=== PATIENT | female | born 1995 | race Hispanic/Latino ===

== ENCOUNTER 2018-12-20 10:32 | Outpatient (CLI) | payer OTHER ==
--- NOTE | 2018-12-20 11:42 | ULT ---
OBSTETRIC SONOGRAM: Date: 12/20/18 HISTORY: No care. Third trimester gestation. Evaluate size and dates. FINDINGS: Single intrauterine gestation in breech presentation. Cervical is closed and 3.6 cm. Grade II placent a is anterior. Amniotic fluid is within normal limits. Three vessel cord shows a normal insertion. Sp ine and kidneys are intact as visualized. Four chamber heart shows motion at 135 beats/minute. No fabián ss intracranial abnormalities. Measurements are as follows: BPD: 29 weeks/1 day HC: 29 weeks/1 day AC: 29 weeks/4 days FL: 27 weeks/3 days Estimated date of delivery based on today's sonogram is 03/08/2019. IMPRESSION: Single, viable intrauterine gestation, with estimated gestational age based on today's sonogram of 28 weeks/6 days. No significant abnormalities are demonstrated. POS: CET
== END 2018-12-20 10:33 | disposition home or self-care (01) ==
LOC: BICULT 10:32
PROVIDERS: ATTEND Family Medicine
DX: Z34.83 Encounter for supervision of other normal pregnancy, third trimester (principal); Z3A.28 28 weeks gestation of pregnancy
CPT/HCPCS: 76805

== ENCOUNTER 2018-12-27 22:40 | Day surgery (SDC) | payer OTHER ==
[2018-12-28 00:26] VITALS: BP 127/60; TEMP 98.4; BMI 24.7
--- NOTE | 2018-12-28 04:44 | SS ---
DATE OF ADMISSION: 12/27/2018 DATE OF DISCHARGE: 12/28/2018 REGULAR PHYSICIAN: Leroy Nuno MD. EVALUATING PHYSICIAN: Favian Mcrae MD. CHIEF COMPLAINT: Decreased movement. HISTORY OF PRESENT ILLNESS: Ms. Kadeem Lockett is a 23-year-old , G2, P1-0-0-1 with an estimated date of confinement of 02/27/2019, who presents complaining of decreased movement since earlier this afternoon. She denies ruptured membranes, vaginal bleeding, or contractions. Her care has been with Dr. Nuno without complications. PAST OBSTETRICAL HISTORY: One vaginal delivery at term. PAST MEDICAL HISTORY: None. PAST SURGICAL HISTORY: None. CURRENT MEDICATIONS: vitamins. ALLERGIES: NO KNOWN ALLERGIES. SOCIAL HISTORY: Denies tobacco, alcohol, or drug use. FAMILY HISTORY: Unremarkable. REVIEW OF SYSTEMS: Denies nausea, vomiting, fever, chills, ruptured membranes, or vaginal bleeding. PHYSICAL EXAMINATION: VITAL SIGNS: Vital signs are stable and she is afebrile. GENERAL: She is pleasant. She is in no acute distress. ABDOMEN: Soft, nontender, and gravid. PELVIC: Deferred. heart rate tracing is reassuring with spontaneous accelerations. No decelerations were seen. The patient does comment that she has noted movement while in triage. No uterine contractions are noted. ASSESSMENT: 1. 31 and 2/7th week intrauterine . 2. Reassuring testing tonight in triage. PLAN: The patient will be dismissed to home. The nature of movement and kick counts were discussed with her in detail and she was sent home in good condition to follow up with Dr. Nuno. Job ID: [id number]
== END 2018-12-28 00:10 | disposition home or self-care (01) ==
LOC: L&D/OP 22:40
PROVIDERS: ATTEND Family Medicine
DX: O36.8130 Decreased fetal movements, third trimester, not applicable or unspecified (principal); Z3A.31 31 weeks gestation of pregnancy; Z79.899 Other long term (current) drug therapy
CPT/HCPCS: 99282

== ENCOUNTER 2019-02-20 19:15 | Inpatient (IN) | payer OTHER ==
[~2019-02-20 19:15] MED LIST: Lidocaine 2% MPF 10 ML AMP (For Epidural Use) ONE
[2019-02-20] MEDS ORDERED: Misoprostol 200 MCG TAB PR PRN (23:36)
[2019-02-20] MEDS ORDERED: NS w/ Oxytocin 10 units 500 ML IV SCH (23:36)
[2019-02-20] MEDS ORDERED: hydrALAZINE 20 MG/ML VIAL SLOW IVP PRN (23:36)
[2019-02-20] MEDS ORDERED: Diphenoxylate HCl/Atropine Tablet PO PRN (23:36)
[2019-02-20] MEDS ORDERED: Butorphanol Tartrate 1 MG/ML VIAL SLOW IVP PRN (23:36)
[2019-02-20] MEDS ORDERED: Promethazine HCl 25 MG/ML VIAL IM PRN (23:36)
[2019-02-20] MEDS ORDERED: Methylergonovine 0.2 MG/ML VIAL IM PRN (23:36)
[2019-02-20] MEDS ORDERED: NS / Oxytocin 40 units/1000ml 1,000 ML IV PRN (23:36)
[2019-02-20] MEDS ORDERED: Ibuprofen 800 MG TAB PO PRN (23:36)
[2019-02-20] MEDS ORDERED: Lidocaine 1% (PF) 30 ML VIAL SC PRN (23:36)
[2019-02-20] MEDS ORDERED: Ondansetron PF 4 MG/2 ML Vial IVP PRN (23:36)
[2019-02-20] MEDS ORDERED: HYDROcodone/Acetaminophen 5/325 mg Tablet PO PRN (23:36)
[2019-02-20 23:44] VITALS: BMI 33.2
[2019-02-21 00:59] LABS: Hemoglobin 11.1 g/dL (12.0-16.0); Mean Corpuscular HGB CONC 33.5 g/dL (32.0-36.0); Mean Corpuscular Hemoglobin 27.1 pg (27.0-31.0); Mean Corpuscular Volume 80.8 fL (78.0-98.0); Mean Platelet Volume 8.4 fL (7.4-10.4); Platelet Count 190 thou/uL (130-400); RBC Distribution Width 13.7 % (11.5-14.5); Red Blood Cell (RBC) Count 4.08 mill/uL (4.20-5.40); White Blood Cell (WBC) Count 9.9 thou/uL (4.8-10.8)
[2019-02-21] MEDS: Misoprostol 100 MCG TAB PO SCH ×3 (01:05→20:47)
[2019-02-21] MEDS: Lactated Ringer's 1,000 ML IV SCH ×4 (01:10→17:24)
[2019-02-21 01:39] LABS: Syphilis Antibody Nonreactive (Nonreactive); Syphilis Antibody Index 0.02 S/CO (<1.00 Non-Reactive)
[2019-02-21 01:40] LABS: HBSAg Index 0.27 S/CO (0-0.99); Hep B Surf Ag Non-Reactive S/CO (NonReactive)
[2019-02-21] MEDS ORDERED: NIFEdipine 10 MG CAP PO SCH (10:00)
[2019-02-21] MEDS: NS w/ Oxytocin 10 units 500 ML IV SCH (10:18)
[2019-02-21] MEDS ORDERED: Fentanyl 4 mcg/Bup 0.1% Cadd 100 ML ONE (16:25)
[2019-02-21] MEDS ORDERED: Lidocaine 1% PF 5 ML VIAL ONE (16:35)
[2019-02-21] MEDS ORDERED: Lidocaine 1.5%/Epinephrine 1:200,000 5 ML AMPUL IJ ONE (16:36)
[2019-02-21] MEDS ORDERED: Ondansetron PF 4 MG/2 ML Vial IVP PRN (16:53)
[2019-02-21] MEDS ORDERED: Promethazine HCl 25 MG/ML VIAL IM PRN (16:53)
[2019-02-21] MEDS ORDERED: diphenhydrAMINE 50 MG/ML VIAL IVP PRN (16:53)
[2019-02-21] MEDS ORDERED: Naloxone HCl 0.4 mg/ml Vial IVP PRN ×2 (16:53)
[2019-02-21] MEDS ORDERED: ePHEDrine/0.9% NaCl/PF SYRINGE 50 mg/10 ml SLOW IVP PRN (16:53)
[2019-02-21] MEDS ORDERED: Acetaminophen 325 MG TAB PO PRN (16:53)
[2019-02-21] MEDS ORDERED: Lactated Ringer's 500 ML IV PRN (16:53)
[2019-02-21] MEDS ORDERED: Communication Order-Pharmacy FS SCH (17:00)
[2019-02-21] MEDS ORDERED: Fentanyl 4 mcg/Bupivacaine 0.1% Cassette 100 ML EPIDURAL SCH (17:00)
[2019-02-21] MEDS ORDERED: Lidocaine 2% 10 ML INJ ONE (23:44)
[2019-02-21] MEDS ORDERED: Ketorolac Tromethamine 30 MG/ML VIAL ONE (23:44)
[2019-02-21] MEDS ORDERED: ePHEDrine/0.9% NaCl/PF SYRINGE 50 mg/10 ml ONE (23:44)
[2019-02-21] MEDS ORDERED: Ondansetron PF 4 MG/2 ML Vial ONE (23:44)
[2019-02-21] MEDS ORDERED: diphenhydrAMINE 50 MG/ML VIAL ONE (23:44)
[2019-02-21] MEDS ORDERED: Dexamethasone 4 mg/ml Vial ONE (23:44)
[2019-02-21] MEDS ORDERED: Oxytocin 10 UNITS/ML VIAL ONE (23:44)
[2019-02-21] MEDS ORDERED: CEFAZOLIN 2 GM in Premix Bag 1 BAG IVPB SCH (23:59)
[2019-02-21] MEDS ORDERED: Azithromycin 500 MG in Sodium Chloride 0.9% 250 ML 250 ML IVPB SCH (23:59)
[2019-02-21] MEDS ORDERED: Bicitra 30 ML UDCUP PO SCH (23:59)
[2019-02-22] MEDS: Carboprost 250 MCG/ML AMP IM PRN ×2 (00:13→00:57)
[2019-02-22] MEDS ORDERED: Methylergonovine 0.2 MG/ML VIAL ONE (00:25)
[2019-02-22] MEDS ORDERED: Carboprost 250 MCG/ML AMP ONE ×2 (00:25→00:59)
[2019-02-22] MEDS ORDERED: MORPHINE 5 MG/10 ML PF VIAL ONE (00:36)
[2019-02-22] MEDS ORDERED: Meperidine HCl/PF 25 MG/ML VIAL SLOW IVP PRN (00:43)
[2019-02-22] MEDS ORDERED: Promethazine HCl 25 MG/ML VIAL IM PRN (00:43)
[2019-02-22] MEDS ORDERED: Ondansetron PF 4 MG/2 ML Vial IVP PRN ×2 (00:43→05:54)
[2019-02-22] MEDS ORDERED: Ondansetron HCl/PF 4 MG/2 ML Vial IVP PRN (00:43)
[2019-02-22] MEDS ORDERED: diphenhydrAMINE 50 MG/ML VIAL IVP PRN (00:43)
[2019-02-22] MEDS ORDERED: Naloxone HCl 0.4 mg/ml Vial IVP PRN ×2 (00:43)
[2019-02-22] MEDS ORDERED: HYDROmorphone 2 MG/ML VIAL SLOW IVP PRN (00:43)
[2019-02-22] MEDS ORDERED: L&D-Morphine 4 MG/ML VIAL SLOW IVP PRN (00:43)
[2019-02-22] MEDS ORDERED: Naloxone HCl 0.4 mg/ml Vial IV PRN (00:43)
[2019-02-22] MEDS ORDERED: Promethazine HCl 25 MG SUPP PR PRN (00:43)
[2019-02-22] MEDS ORDERED: Ketorolac Tromethamine 30 MG/ML VIAL IVP PRN (00:43)
[2019-02-22] MEDS ORDERED: Communication Order-Pharmacy FS SCH (00:45)
[2019-02-22] MEDS ORDERED: Misoprostol 200 MCG TAB ONE (00:58)
[2019-02-22] MEDS ORDERED: Bupivacaine/Epinephrine 0.5% 10 ML VIAL ONE (01:01)
[2019-02-22] MEDS ORDERED: Tranexamic Acid 1,000 MG/10 ML VIAL ONE (01:15)
[2019-02-22] MEDS ORDERED: metroNIDAZOLE 500 MG in Premix Bag 1 BAG IVPB SCH (02:30)
--- NOTE | 2019-02-22 03:18 | OP ---
DATE OF PROCEDURE: 02/22/2019 PREOPERATIVE DIAGNOSES: 1. Term . 2. Arrest of dilation. POSTOPERATIVE DIAGNOSES: 1. Term . 2. Arrest of dilation. 3. Persistent occiput posterior presentation. 4. Atonic hemorrhage. PROCEDURE PERFORMED: Primary low cervical transverse section. CLEATER: Soco Jay MD ANESTHESIA: Epidural. DESCRIPTION OF PROCEDURE: After informed consent was obtained from the patient, she was taken to the operating room where she was prepped and draped in the usual sterile fashion. A Pfannenstiel incision was created with a #10 scalpel blade and carried down to the fascia. Skin bleeders were cauterized with the Bovie. The fascia was nicked in the midline. The fascial incision was extended transversely with Preciado scissors. The superior fascial segment was grasped with Terrie's and elevated, and the underlying rectus muscles were dissected free 1st bluntly and then sharply with the Preciado scissors. This was repeated with the inferior fascial segment. The rectus muscles were divided in the midline with blunt dissection. An Vin O retractor was placed. The uterus was entered in a low-transverse fashion with a clean #10 scalpel blade. The vertex was deep in the pelvis, but was able to be delivered onto the operative field followed by the remainder of the in an atraumatic fashion. Oropharynx and nares were bulb suctioned. The was handed to the staff in attendance. A segment of cord was handed off to the program coordinator for residence life for cord ABG. Cord blood was obtained. The placenta was manually extracted. The uterus was exteriorized and freed of clots and debris. There were bilateral extensions inferiorly of the hysterotomy due to the impaction of the fetus in the pelvis. The uterus was repaired with a running suture of 0 Vicryl in a single full-thickness layer followed by a series of interrupted [id number] sutures along the incision line for hemostasis which was observed. The abdomen was copiously irrigated with saline. During the repair of the uterus, the uterus would gain appropriate tone and then become somewhat atonic and so Methergine x1 and Hemabate x2 were given intraoperatively along with TXA. Seprafilm was applied to the repaired uterine incision and the anterior uterine fundus. The uterus was then returned to the abdomen. Inspection of the gutters showed that the incision and the extensions were hemostatic. Pale yellow urine was noted to be draining into the Silverio at this point in the case. The peritoneum was repaired with a running suture of 3-0 Vicryl. The fascia was repaired with a running suture of 0 PDS. Three interrupted sutures of 3-0 Vicryl were placed in the subdermal layer to reapproximate the skin. Sponge and instrument counts were correct x4. She tolerated the procedure well, was taken to recovery in stable condition. FINDINGS: Viable male infant, 6 pounds 7 ounces. 7, 8 and 9 at 1, 5, and 10 minutes respectively. COMPLICATIONS: Atonic hemorrhage. QUANTITATIVE BLOOD LOSS: 1172 mL. Job ID: [id number]
[2019-02-22] MEDS: NS w/ Oxytocin 10 units 500 ML IV SCH (04:20)
[2019-02-22] MEDS ORDERED: Bisacodyl 10 MG SUPP PR PRN (05:54)
[2019-02-22] MEDS ORDERED: diphenhydrAMINE 25 MG CAP PO PRN (05:54)
[2019-02-22] MEDS ORDERED: Lanolin Ointment 7 GM TUBE TOP PRN (05:54)
[2019-02-22] MEDS ORDERED: NS / Oxytocin 40 units/1000ml 1,000 ML IV SCH (05:54)
[2019-02-22] MEDS ORDERED: Adacel (T-DAP) 0.5 ML SYRINGE IM ONE (05:54)
[2019-02-22] MEDS ORDERED: hydrALAZINE 20 MG/ML VIAL SLOW IVP PRN (05:54)
[2019-02-22] MEDS ORDERED: Ketorolac Tromethamine 30 MG/ML VIAL IVP SCH (06:00)
[2019-02-22] MEDS: Ketorolac Tromethamine 30 MG/ML VIAL IVP SCH ×3 (09:12→22:43)
[2019-02-22] MEDS: Ferrous Sulfate 325 MG TAB PO SCH ×2 (09:13→17:08)
[2019-02-22] MEDS: Docusate Calcium (SURFAK) 240 MG CAP PO SCH ×2 (09:13→22:44)
[2019-02-22] MEDS: Prenatal Vitamin 1 TAB PO SCH (09:13)
[2019-02-22] MEDS: CEFAZOLIN 2 GM in Premix Bag 1 BAG IVPB SCH ×2 (09:13→17:08)
[2019-02-22] MEDS: metroNIDAZOLE 500 MG in Premix Bag 1 BAG IVPB SCH ×2 (11:39→22:44)
[2019-02-22 12:49] LABS: Hemoglobin 7.4 g/dL (12.0-16.0); Mean Corpuscular Hemoglobin 27.8 pg (27.0-31.0); Mean Corpuscular Volume 81.5 fL (78.0-98.0); Mean Platelet Volume 8.4 fL (7.4-10.4); Platelet Count 158 thou/uL (130-400); RBC Distribution Width 13.5 % (11.5-14.5); Red Blood Cell (RBC) Count 2.68 mill/uL (4.20-5.40); White Blood Cell (WBC) Count 17.3 thou/uL (4.8-10.8)
[2019-02-22] MEDS ORDERED: diphenhydrAMINE 50 MG/ML VIAL ONE (15:48)
[2019-02-22] MEDS ORDERED: Dexamethasone 20 MG/5 ML VIAL ONE (15:48)
[2019-02-22] MEDS ORDERED: Ondansetron PF 4 MG/2 ML Vial ONE (15:48)
[2019-02-22] MEDS ORDERED: Lidocaine 2% PF 5 ML VIAL ONE (15:48)
[2019-02-22] MEDS ORDERED: Ketorolac Tromethamine 30 MG/ML VIAL ONE (15:48)
[2019-02-22] MEDS ORDERED: ePHEDrine 50 MG/ML VIAL ONE (15:48)
[2019-02-22] MEDS: HYDROcodone/Acetaminophen 5/325 mg Tablet PO PRN ×2 (17:12→22:47)
[2019-02-22] MEDS: Simethicone Chewable 80 MG TAB PO PRN ×2 (17:12→22:48)
[2019-02-23] MEDS: CEFAZOLIN 2 GM in Premix Bag 1 BAG IVPB SCH ×3 (02:00→17:16)
[2019-02-23] MEDS: metroNIDAZOLE 500 MG in Premix Bag 1 BAG IVPB SCH ×3 (02:35→18:04)
[2019-02-23 06:11] LABS: Hemoglobin 6.4 g/dL (12.0-16.0); Mean Corpuscular HGB CONC 32.7 g/dL (32.0-36.0); Mean Corpuscular Volume 82.4 fL (78.0-98.0); Mean Platelet Volume 8.3 fL (7.4-10.4); Platelet Count 153 thou/uL (130-400); RBC Distribution Width 13.6 % (11.5-14.5); Red Blood Cell (RBC) Count 2.38 mill/uL (4.20-5.40); White Blood Cell (WBC) Count 14.5 thou/uL (4.8-10.8)
[2019-02-23] MEDS: Ketorolac Tromethamine 30 MG/ML VIAL IVP SCH ×2 (06:31→06:51)
[2019-02-23] MEDS: Prenatal Vitamin 1 TAB PO SCH (08:40)
[2019-02-23] MEDS: Ferrous Sulfate 325 MG TAB PO SCH ×3 (08:40→18:10)
[2019-02-23] MEDS: HYDROcodone/Acetaminophen 5/325 mg Tablet PO PRN ×3 (08:40→17:12)
[2019-02-23] MEDS: Docusate Calcium (SURFAK) 240 MG CAP PO SCH ×2 (08:40→21:50)
[2019-02-23] MEDS: Simethicone Chewable 80 MG TAB PO PRN (13:15)
[2019-02-24] MEDS: CEFAZOLIN 2 GM in Premix Bag 1 BAG IVPB SCH (00:34)
[2019-02-24] MEDS: Ibuprofen 800 MG TAB PO SCH ×2 (01:14→09:08)
[2019-02-24] MEDS: metroNIDAZOLE 500 MG in Premix Bag 1 BAG IVPB SCH (01:14)
[2019-02-24 05:44] LABS: Hemoglobin 8.7 g/dL (12.0-16.0); Mean Corpuscular HGB CONC 33.4 g/dL (32.0-36.0); Mean Platelet Volume 8.3 fL (7.4-10.4); Platelet Count 166 thou/uL (130-400); RBC Distribution Width 15.4 % (11.5-14.5); White Blood Cell (WBC) Count 11.6 thou/uL (4.8-10.8)
[2019-02-24 08:20] VITALS: BP 129/83; TEMP 97.9
[2019-02-24] MEDS: Prenatal Vitamin 1 TAB PO SCH (09:07)
[2019-02-24] MEDS: Docusate Calcium (SURFAK) 240 MG CAP PO SCH (09:08)
[2019-02-24] MEDS: Ferrous Sulfate 325 MG TAB PO SCH (09:08)
[2019-02-27] MEDS ORDERED: Ibuprofen 800 MG TAB PO SCH (06:00)
== END 2019-02-24 16:15 | disposition home or self-care (01) | DRG 787 ==
LOC: L&D 23:14 → 3SW 02-22 05:53
PROVIDERS: ADMIT Family Medicine; ATTEND Family Medicine
PROC: 10D00Z1 Extraction of Products of Conception, Low, Open Approach (ICD-10-PCS; principal; 2019-02-22)
PROC: 10H07YZ Insertion of Other Device into Products of Conception, Via Natural or Artificial Opening (ICD-10-PCS; 2019-02-22)
PROC: 3E0P7VZ Introduction of Hormone into Female Reproductive, Via Natural or Artificial Opening (ICD-10-PCS; 2019-02-22)
PROC: 10907ZC Drainage of Amniotic Fluid, Therapeutic from Products of Conception, Via Natural or Artificial Opening (ICD-10-PCS; 2019-02-22)
DX: O62.1 Secondary uterine inertia (principal); O72.1 Other immediate postpartum hemorrhage; Z37.0 Single live birth; Z3A.39 39 weeks gestation of pregnancy
CPT/HCPCS: 36415; 36430; 51702; 85027; 86780; 86850; 86900; 86901; 87340; J0456; J0595; J0690; J1100; J1200; J1885; J2001; J2210; J2274; J2405; J2590; J3490; J7050; P9016